=== PATIENT | male | born 1945 | race Caucasian/White ===

== ENCOUNTER 2016-07-19 18:49 | Outpatient (RCR) | payer BC, MEDICARE ==
[~2016-07-19] VITALS: Ht 175.3 cm; Wt 188.0 kg
[2016-07-19 08:34] VITALS: BP 128/72; PULSE 94; TEMP 97.1
[~2016-07-19 18:49] MED LIST: ALEVE 220MG220 MG PO; APRESOLINE50 MG PO; ASPIRIN E.C. 8181 MG PO; BENICAR; BENICAR HCT 12.1 TA1 PO; CARDIZEM LA360 MG PO; CATAPRES; CATAPRES0.2 MG PO; CEFACLOR500 M2 PO; CEPHALEXIN250 M1 PO; COUMADIN 22.5 MG/TAB PO; COUMADIN 5MG5 MG/TAB PO; DITROPAN XL15 MG PO; FLOMAX 0.40.4 MG/CAP PO; GAS-X80 MG PO; HYDROCORTISONE30 G1 TP; LASIX 40MG TABL40 MG PO; LIPITOR 10MG10 MG PO; LIPITOR 40MG TA40 MG PO; MAALOX1 TAB PO; MULTAQ400 MG PO; PERCOCET 325 MG1 TA2 PO; PERCOCET 5/321 UDTAB PO; PROPECIA1 MG PO; STOOL SOFTENER100 M2 PO; VESICARE10 MG PO; ZOFRAN 4MG T4 MG/TAB PO; bp meds
[2016-07-20 08:16] VITALS: BP 144/50; PULSE 107; TEMP 97.4
[2016-07-21 07:05] VITALS: BP 150/58; PULSE 88; TEMP 97.4
[2016-07-21 18:30] VITALS: BP 147/77; PULSE 84; TEMP 97.7
[2016-07-22 07:30] VITALS: BP 122/71; PULSE 77; TEMP 98
[2016-07-23] MEDS ORDERED: MAALOX ADVANCE148 ML PO (09:28)
[2016-07-23] MEDS ORDERED: PROAIR HFA0.09 MG/AC IH (09:29)
[2016-07-23] MEDS ORDERED: PROMETHAZINE V473 M2 PO (09:31)
[2016-07-23] MEDS ORDERED: TRIAMCINOLONE A15 G3 TP (09:32)
== END 2016-07-23 09:00 | disposition home or self-care (01) ==
LOC: EUO 18:49
DX: Z79.01 Long term (current) use of anticoagulants (principal); I35.0 Nonrheumatic aortic (valve) stenosis; I48.91 Unspecified atrial fibrillation
CPT/HCPCS: J1560; J1650

== ENCOUNTER 2016-07-23 07:16 | Day surgery (SDC) | payer BC, MEDICARE ==
[2016-07-23] VITALS (9 sets, daily range): BP systolic 96–149; BP diastolic 55–100; PULSE 58–93; TEMP 97.5–98.3
[~2016-07-23] VITALS: Ht 175.3 cm; Wt 185.7 kg
[2016-07-23 08:40] LABS: INR 1.2 (0.8-3.0); PROTHROMBIN TIME 13.6 SECONDS (9.7-12.8)
[2016-07-23] MEDS ORDERED: MAALOX ADVANCE148 ML PO (09:28)
[2016-07-23] MEDS ORDERED: PROAIR HFA0.09 MG/AC IH (09:29)
[2016-07-23] MEDS ORDERED: PROMETHAZINE V473 M2 PO (09:31)
[2016-07-23] MEDS ORDERED: TRIAMCINOLONE A15 G3 TP (09:32)
[2016-07-24 01:22] VITALS: BP 142/76; PULSE 83; TEMP 97.6
[2016-07-24 05:20] VITALS: BP 129/69; PULSE 90; TEMP 97.9
[2016-07-24 07:31] LABS: HEMATOCRIT 46.5 % (42.0-52.0); HEMOGLOBIN 14.7 g/dl (13.5-18.0); MEAN CELL VOLUME 91 fl (80.0-100.0); MEAN CORPUSCULAR HEMOGLOBIN 29 pg (27.0-31.0); MEAN CORPUSCULAR HGB CONC 32 g/dl (33.0-37.0); MEAN PLATELET VOLUME 10.3 fl (7.4-10.4); PLATELET COUNT 236 K/mm3 (130-400); REDCELL DISTRIBUTION WIDTH-CV 17.2 % (11.5-14.5); WHITE BLOOD COUNT 6.7 K/mm3 (4.8-10.8)
[2016-07-24 07:46] VITALS: BP 143/77; PULSE 82; TEMP 97.8
[2016-07-24 08:18] LABS: THYROID STIMULATING HORMONE 0.434 uIU/mL (0.465-4.680)
[2016-07-24 08:56] VITALS: BP 143/94; PULSE 93; TEMP 98.2
[2016-07-24 13:42] VITALS: BP 124/74; PULSE 82; TEMP 97.8
== END 2016-07-24 19:45 | disposition home or self-care (01) ==
LOC: SDCO 07:16 → SURG 14:15 → SDCO 07-24 19:45
PROVIDERS: Internal Medicine; Nurse Anesthetist, Certified Registered; Urology
DX: N40.1 Benign prostatic hyperplasia with lower urinary tract symptoms (principal); R35.0 Frequency of micturition; I97.89 Other postprocedural complications and disorders of the circulatory system, not elsewhere classified; Z79.01 Long term (current) use of anticoagulants; I10 Essential (primary) hypertension; E78.1 Pure hyperglyceridemia; E78.00 Pure hypercholesterolemia, unspecified; Z87.891 Personal history of nicotine dependence; Z80.3 Family history of malignant neoplasm of breast
CPT/HCPCS: OP; 99203; 99204; J0690; J1100; J1170; J1650; J2300; J2405; J2704; J3010; J7030

== ENCOUNTER 2016-07-26 18:35 | Outpatient (RCR) | payer BC, MEDICARE ==
[2016-07-25 07:29] VITALS: BP 126/66; PULSE 115; TEMP 98.2
[2016-07-25 18:18] VITALS: BP 128/63; PULSE 94; TEMP 97.8
[~2016-07-26] VITALS: Ht 175.3 cm; Wt 184.0 kg
[2016-07-26 08:31] VITALS: BP 116/67; PULSE 67; TEMP 98
[~2016-07-26 18:35] MED LIST changes: +MAALOX ADVANCE148 ML PO; +PROAIR HFA0.09 MG/AC IH; +PROMETHAZINE V473 M2 PO; +TRIAMCINOLONE A15 G3 TP
[2016-07-26 18:42] VITALS: BP 150/81; PULSE 96; TEMP 97.7
== END 2016-07-27 17:00 | disposition home or self-care (01) ==
LOC: EUO 07-27 08:00
DX: Z79.01 Long term (current) use of anticoagulants (principal)
CPT/HCPCS: J1560; J1650

== ENCOUNTER 2016-07-27 08:44 | Emergency (ER) | payer BC, MEDICARE ==
[~2016-07-27] VITALS: Ht 175.3 cm; Wt 181.8 kg
[2016-07-27 08:47] VITALS: BP 105/55; TEMP 98.2
[2016-07-27 09:42] LABS: ADJUSTED CALCIUM 9.5 mg/dL (8.4-10.2); ALBUMIN 3.6 gm/dL (3.5-5.0); BASO # 0.1 (0.0-0.2); BASO % 0.7 % (0.0-2.0); BILIRUBIN,TOTAL 1.7 mg/dL (0.0-1.0); CALCIUM 9.2 mg/dL (8.4-10.2); CREATININE, serum 0.74 mg/dL (0.66-1.25); EOS # 0.1 (0.0-0.7); EOS % 0.9 % (0-4.0); GRAN # 6.2 (1.4-6.5); GRAN % 71.4 % (42.2-75.2); HEMATOCRIT 41.8 % (42.0-52.0); HEMOGLOBIN 13.4 g/dl (13.5-18.0); LYMPH # 1.4 (1.2-3.4); LYMPH % 16.2 % (20.0-51.0); MEAN CELL VOLUME 88 fl (80.0-100.0); MEAN CORPUSCULAR HEMOGLOBIN 28 pg (27.0-31.0); MEAN CORPUSCULAR HGB CONC 32 g/dl (33.0-37.0); MEAN PLATELET VOLUME 10.3 fl (7.4-10.4); MONO # 0.9 (0.1-0.6); PLATELET COUNT 256 K/mm3 (130-400); POTASSIUM 3.9 mmol/L (3.4-5.0); RED BLOOD COUNT 4.73 M/mm3 (4.20-5.60); REDCELL DISTRIBUTION WIDTH-CV 16.6 % (11.5-14.5); TOTAL PROTEIN 6.4 gm/dL (6.4-8.2); WHITE BLOOD COUNT 8.7 K/mm3 (4.8-10.8)
[2016-07-27 09:48] LABS: INR 1.6 (0.8-3.0); PROTHROMBIN TIME 18.1 SECONDS (9.7-12.8)
[2016-07-27 11:00] VITALS: PULSE 79
== END 2016-07-27 11:01 | disposition home or self-care (01) ==
LOC: COL.ER 08:44
PROVIDERS: Family Medicine
DX: N99.820 Postprocedural hemorrhage of a genitourinary system organ or structure following a genitourinary system procedure (principal); I48.91 Unspecified atrial fibrillation; Z79.01 Long term (current) use of anticoagulants

== ENCOUNTER 2016-12-22 10:57 | Day surgery (SDC) | payer BC, MEDICARE ==
[~2016-12-22] VITALS: Ht 175.3 cm; Wt 155.9 kg
[2016-12-22] VITALS (11 sets, daily range): BP systolic 98–159; BP diastolic 55–94; PULSE 69–96; TEMP 98.7
[2016-12-22 11:38] LABS: HEMATOCRIT 46.7 % (42.0-52.0); HEMOGLOBIN 15.3 g/dl (13.5-18.0); MEAN CELL VOLUME 78 fl (80.0-100.0); MEAN CORPUSCULAR HEMOGLOBIN 25 pg (27.0-31.0); MEAN CORPUSCULAR HGB CONC 33 g/dl (33.0-37.0); PLATELET COUNT 275 K/mm3 (130-400); RED BLOOD COUNT 6.02 M/mm3 (4.20-5.60); REDCELL DISTRIBUTION WIDTH-CV 25.2 % (11.5-14.5); WHITE BLOOD COUNT 5.7 K/mm3 (4.8-10.8)
[2016-12-22 11:42] LABS: INR 1.7 (0.8-3.0); PROTHROMBIN TIME 19.8 SECONDS (9.7-12.8)
[2016-12-22 11:58] LABS: CALCIUM 9.5 mg/dL (8.4-10.2); CREATININE, serum 0.93 mg/dL (0.66-1.25); POTASSIUM 4.1 mmol/L (3.4-5.0)
[2016-12-22] MEDS ORDERED: MUCINEX 60600 MG/TA1 PO (11:59)
[2016-12-22] MEDS ORDERED: MELATONIN3 M1 PO (11:59)
[2016-12-22] MEDS ORDERED: ZANTAC 150MG T150 MG PO (12:00)
[2016-12-22] MEDS ORDERED: TOVIAZ4 MG PO (12:00)
[2016-12-22] MEDS ORDERED: DIOVAN HCT 25 M1 TAB PO (12:00)
[2016-12-22] MEDS ORDERED: VICTOZA6 MG/ML SQ (12:02)
== END 2016-12-22 19:01 | disposition home or self-care (01) ==
LOC: COL.CAR 10:57
PROVIDERS: Internal Medicine Cardiovascular Disease
DX: I27.2 Other secondary pulmonary hypertension (principal); I08.1 Rheumatic disorders of both mitral and tricuspid valves; I48.2 Chronic atrial fibrillation; E78.5 Hyperlipidemia, unspecified; E66.01 Morbid (severe) obesity due to excess calories; G90.01 Carotid sinus syncope; I26.09 Other pulmonary embolism with acute cor pulmonale; N40.0 Benign prostatic hyperplasia without lower urinary tract symptoms; Z79.01 Long term (current) use of anticoagulants; Z95.818 Presence of other cardiac implants and grafts; Z87.891 Personal history of nicotine dependence; Z81.8 Family history of other mental and behavioral disorders; Z82.49 Family history of ischemic heart disease and other diseases of the circulatory system
CPT/HCPCS: C1760; C1769; C1894; J1200; J2704; J2930; J3010; J7030; Q9967

== ENCOUNTER → 2017-02-03 | Outpatient (CLI) | payer BC ==
[~2017-02-03] VITALS: Ht 175.3 cm; Wt 150.5 kg
[~2017-02-03] MED LIST changes: +DIOVAN HCT 25 M1 TAB PO; +MAALOX ADVANCED1 CTB PO; +MELATONIN3 M1 PO; +MELATONIN5 M1 SL; +MUCINEX 60600 MG/TA1 PO; +SAXENDA6 MG/ML SQ; +TOVIAZ4 MG PO; +VICTOZA6 MG/ML SQ; +ZANTAC 150MG T150 MG PO
[2017-02-03 09:15] VITALS: BP 142/84; PULSE 98
[2017-02-03 10:25] VITALS: BP 142/84; PULSE 98
== END ==
LOC: COL.RAD 08:44
DX: D44.0 Neoplasm of uncertain behavior of thyroid gland (principal)
CPT/HCPCS: 13756

== ENCOUNTER 2017-03-23 11:54 | Day surgery (SDC) | payer BC, MEDICARE ==
[~2017-03-23] VITALS: Ht 175.3 cm; Wt 139.1 kg
[2017-03-23] MEDS ORDERED: LIPITOR 10MG10 MG PO (12:27)
[2017-03-23] MEDS ORDERED: DIOVAN HCT 12.51 TA2 PO (12:30)
[2017-03-23] MEDS ORDERED: TRIAMC 0.1 454 TOP (12:32)
[2017-03-23] MEDS ORDERED: ALEVE 220MG220 MG PO (12:33)
[2017-03-23] MEDS ORDERED: CENTRUM SILVER1 TAB PO (12:34)
[2017-03-23] MEDS ORDERED: DIET SQ (12:35)
[2017-03-23 12:36] VITALS: BP 134/77; PULSE 75; TEMP 97.2
[2017-03-23 16:30] VITALS: BP 99/69; PULSE 57; TEMP 97
[2017-03-23 16:41] VITALS: TEMP 97.2
[2017-03-23 16:45] VITALS: BP 117/73; PULSE 56
[2017-03-23] MEDS ORDERED: ZOFRAN 4MG T4 MG/TAB PO (16:55)
[2017-03-23] MEDS ORDERED: PERCOCET 325 MG1 TA2 PO (16:56)
[2017-03-23 17:00] VITALS: BP 112/76; PULSE 61
== END 2017-03-23 17:30 | disposition home or self-care (01) ==
LOC: SDCO 11:54
DX: C44.219 Basal cell carcinoma of skin of left ear and external auricular canal (principal); C44.311 Basal cell carcinoma of skin of nose; I48.91 Unspecified atrial fibrillation; I10 Essential (primary) hypertension; I25.10 Atherosclerotic heart disease of native coronary artery without angina pectoris; M19.90 Unspecified osteoarthritis, unspecified site; G47.33 Obstructive sleep apnea (adult) (pediatric); Z86.718 Personal history of other venous thrombosis and embolism; Z87.891 Personal history of nicotine dependence; Z79.01 Long term (current) use of anticoagulants; Z96.651 Presence of right artificial knee joint; Z82.49 Family history of ischemic heart disease and other diseases of the circulatory system
CPT/HCPCS: J0690; J1100; J2370; J2405; J3010; J7030; J7050; J7120

== ENCOUNTER 2017-07-18 12:29 | Inpatient (IN) | payer BC, MEDICARE ==
[~2017-07-18] VITALS: Ht 175.3 cm; Wt 126.4 kg
[~2017-07-18 12:29] MED LIST changes: +CENTRUM SILVER1 TAB PO; +DIET SQ; +DIOVAN HCT 12.51 TA2 PO; +TRIAMC 0.1 454 TOP
[2017-07-18] MEDS ORDERED: ZANTAC 150MG T150 MG PO (12:53)
[2017-07-18] MEDS ORDERED: CARDIZEM CD 24240 MG PO (12:53)
[2017-07-18] MEDS ORDERED: MELATONIN5 M1 SL (12:54)
[2017-07-18] MEDS ORDERED: TOVIAZ4 MG PO (12:54)
[2017-07-18] MEDS ORDERED: DIOVAN HCT 12.51 TA2 PO (12:54)
[2017-07-18] MEDS ORDERED: LASIX 20MG TABL20 MG PO (12:54)
[2017-07-18] MEDS ORDERED: COUMADIN 22.5 MG/TAB PO (12:55)
[2017-07-18] MEDS ORDERED: LIPITOR 10MG10 MG PO (12:55)
[2017-07-18] MEDS ORDERED: PROFERRIN ES12 MG PO (12:55)
[2017-07-18] MEDS ORDERED: MUCINEX DM 30 M1 TE1 (12:56)
[2017-07-18] MEDS ORDERED: CENTRUM MEN'S (12:56)
[2017-07-18] MEDS ORDERED: COUMADIN 5MG5 MG/TAB PO (12:56)
[2017-07-18] MEDS ORDERED: ALEVE 220MG220 MG PO (12:57)
[2017-07-18 13:14] LABS: BASO # 0.1 (0.0-0.2); BASO % 0.5 % (0.0-2.0); EOS # 0.1 (0.0-0.7); GRAN % 73.7 % (42.2-75.2); HEMATOCRIT 46.9 % (42.0-52.0); HEMOGLOBIN 15.9 g/dl (13.5-18.0); LYMPH # 1.5 (1.2-3.4); LYMPH % 15.5 % (20.0-51.0); MEAN CELL VOLUME 89 fl (80.0-100.0); MEAN CORPUSCULAR HEMOGLOBIN 30 pg (27.0-31.0); MEAN CORPUSCULAR HGB CONC 34 g/dl (33.0-37.0); MEAN PLATELET VOLUME 10.5 fl (7.4-10.4); MONO # 0.9 (0.1-0.6); PLATELET COUNT 272 K/mm3 (130-400); RED BLOOD COUNT 5.28 M/mm3 (4.20-5.60); REDCELL DISTRIBUTION WIDTH-CV 18.1 % (11.5-14.5)
[2017-07-18 13:28] LABS: ALANINE AMINOTRANSFERASE 31 U/L (21-72); ALBUMIN 3.9 gm/dL (3.5-5.0); ALKALINE PHOSPHATASE 84 U/L (50-136); ANION GAP 17 mmol/L (7-16); AST,SGOT 34 U/L (15-37); BILIRUBIN,TOTAL 1.3 mg/dL (0.0-1.0); BLOOD UREA NITROGEN 45 mg/dL (9-20); CALCIUM 9.7 mg/dL (8.4-10.2); CARBON DIOXIDE 25 mmol/L (22-30); CHLORIDE 97 mmol/L (98-107); CREATININE, serum 1.16 mg/dL (0.66-1.25); GLUCOSE 108 mg/dL (74-106); POTASSIUM 3.4 mmol/L (3.4-5.0); SODIUM 140 mmol/L (137-145); TOTAL PROTEIN 7.2 gm/dL (6.4-8.2)
[2017-07-18 13:34] LABS: C-REACTIVE PROTEIN < 0.5 mg/dL (0.0-0.9)
[2017-07-18 13:48] LABS: COLLECTION METHOD CLEAN CATCH
[2017-07-18 13:55] LABS: PH 5 (5-8); SQUAMOUS EPITHELIAL 0-2 /hpf; URINE APPEARANCE Clear; URINE BACTERIA None Seen /hpf; URINE BILIRUBIN Negative (NEGATIVE); URINE BLOOD Negative (NEGATIVE); URINE COLOR Yellow; URINE GLUCOSE Negative (NEGATIVE); URINE KETONE Trace (NEGATIVE); URINE LEUKOCYTE ESTERASE Negative (NEGATIVE); URINE NITRATE Negative (NEGATIVE); URINE PROTEIN(semi-quant) Negative (NEGATIVE); URINE RBC 0-2 /hpf; URINE UROBILINOGEN Negative (NEGATIVE)
[2017-07-18 15:40] LABS: INR 2.6 (0.8-3.0); PROTHROMBIN TIME 31.1 SECONDS (9.7-12.8)
[2017-07-18 15:43] LABS: PARTIAL THROMBOPLASTIN TIME 46.9 SECONDS (26.0-37.0)
[2017-07-18 19:32] VITALS: BP 120/58; PULSE 74; TEMP 97.7
[2017-07-18 20:00] VITALS: BP 117/59; PULSE 70; TEMP 98
[2017-07-19] VITALS (12 sets, daily range): BP systolic 91–121; BP diastolic 55–79; PULSE 42–91; TEMP 97.2–98.6
[2017-07-19 00:20] LABS: INR 1.9 (0.8-3.0); PROTHROMBIN TIME 22.4 SECONDS (9.7-12.8)
[2017-07-19 10:14] LABS: INR 1.5 (0.8-3.0); PROTHROMBIN TIME 17.6 SECONDS (9.7-12.8)
[2017-07-20 00:23] VITALS: BP 114/58; PULSE 62; TEMP 97.2
[2017-07-20 04:00] VITALS: BP 113/52; PULSE 67; TEMP 97.7
== END 2017-07-20 08:40 | disposition home or self-care (01) | DRG 354 ==
LOC: COL.ER 12:29 → SURG 16:14
PROVIDERS: Physician Assistant; Surgery
PROC: 0WUF0JZ Supplement Abdominal Wall with Synthetic Substitute, Open Approach (ICD-10-PCS; principal; 2017-07-19 13:00)
DX: K42.0 Umbilical hernia with obstruction, without gangrene (principal); Z68.41 Body mass index [BMI] 40.0-44.9, adult; I48.91 Unspecified atrial fibrillation; Z79.01 Long term (current) use of anticoagulants; Z87.891 Personal history of nicotine dependence; Z85.828 Personal history of other malignant neoplasm of skin; E66.01 Morbid (severe) obesity due to excess calories
CPT/HCPCS: C1781; J1100; J2270; J2405; J2704; J3010; J3430; J7030; J7120

== ENCOUNTER 2017-10-20 14:05 | Inpatient (IN) | payer BC, MEDICARE ==
[~2017-10-20] VITALS: Ht 175.3 cm; Wt 120.2 kg
[~2017-10-20 14:05] MED LIST changes: +CARDIZEM CD 24240 MG PO; +CENTRUM MEN'S; +LASIX 20MG TABL20 MG PO; +MUCINEX DM 30 M1 TE1 PO; +PROFERRIN ES12 MG PO
[2017-11-04] VITALS (10 sets, daily range): BP systolic 103–151; BP diastolic 52–85; PULSE 52–102; TEMP 97.8–98.2
[2017-11-04 09:48] LABS: INR 1.2 (0.8-3.0); PROTHROMBIN TIME 13.2 SECONDS (9.7-12.8)
[2017-11-04] MEDS ORDERED: FOLIC ACID 40400 MCG PO (09:48)
[2017-11-04] MEDS ORDERED: MAALOX ADVANCE148 ML PO (09:50)
[2017-11-05 01:07] VITALS: BP 128/74; PULSE 63; TEMP 97.6
[2017-11-05 04:39] VITALS: BP 112/60; PULSE 75; TEMP 97.4
[2017-11-05] MEDS ORDERED: CELEBREX 200MG200 MG PO (06:34)
[2017-11-05] MEDS ORDERED: NORCO 325 MG-7.1 TAB PO (06:34)
[2017-11-05] MEDS ORDERED: ULTRAM 50MG TAB50 MG PO (06:35)
[2017-11-05 07:29] LABS: HEMATOCRIT 44.2 % (42.0-52.0); HEMOGLOBIN 14.8 g/dl (13.5-18.0)
[2017-11-05 07:35] LABS: INR 1.2 (0.8-3.0); PROTHROMBIN TIME 13.6 SECONDS (9.7-12.8)
[2017-11-05 08:00] VITALS: BP 117/72; PULSE 78; TEMP 98.2
[2017-11-05 11:22] VITALS: BP 100/65; PULSE 61; TEMP 97.6
[2017-11-05 16:36] VITALS: BP 100/55; PULSE 70; TEMP 97.9
[2017-11-05 20:00] VITALS: BP 120/64; PULSE 41; TEMP 98.5
[2017-11-06 01:08] VITALS: BP 126/57; PULSE 69; TEMP 98.2
[2017-11-06 04:24] VITALS: BP 118/64; PULSE 88; TEMP 98.1
[2017-11-06 07:42] VITALS: BP 96/56; PULSE 59; TEMP 98
[2017-11-06 07:50] LABS: HEMATOCRIT 39.9 % (42.0-52.0); HEMOGLOBIN 13.3 g/dl (13.5-18.0); INR 1.5 (0.8-3.0); PROTHROMBIN TIME 17.5 SECONDS (9.7-12.8)
[2017-11-06 12:11] VITALS: BP 98/60; PULSE 62; TEMP 98.7
[2017-11-06 12:52] VITALS: BP 101/68
== END 2017-11-06 13:30 | disposition home or self-care (01) | DRG 470 ==
LOC: JCC 11-04 07:30
PROVIDERS: Nurse Anesthetist, Certified Registered; Orthopaedic Surgery
PROC: 0SRD0J9 Replacement of Left Knee Joint with Synthetic Substitute, Cemented, Open Approach (ICD-10-PCS; principal; 2017-11-04 10:45)
DX: M17.12 Unilateral primary osteoarthritis, left knee (principal)
CPT/HCPCS: A4314; A9284; C1713; C1776; J0690; J1650; J1885; J2250; J2270; J2370; J2704; J3010; J7120; J7121

== ENCOUNTER 2018-01-29 08:30 | Outpatient (CLI) | payer BC, MEDICARE ==
[~2018-01-29] VITALS: Ht 175.4 cm; Wt 115.0 kg
[~2018-01-29 08:30] MED LIST changes: +CELEBREX 200MG200 MG PO; -CENTRUM MEN'S; +CENTRUM MEN'S PO; +FOLIC ACID 40400 MCG PO; +MELATONIN5 M1 PO; +NORCO 325 MG-7.1 TAB PO; +ULTRAM 50MG TAB50 MG PO
[2018-01-29] MEDS ORDERED: COUMADIN 5MG5 MG/TAB PO (08:49)
[2018-01-29] MEDS ORDERED: ALEVE 220MG220 MG PO (08:54)
[2018-01-29] MEDS ORDERED: MIRALAX PA17 GM/Dose PO (08:56)
[2018-01-29] MEDS ORDERED: TRIAMCINOLONE AC0.13 TOP (08:59)
[2018-01-29 09:24] VITALS: BP 135/90; PULSE 60; TEMP 97.7
[2018-01-29 10:42] VITALS: BP 130/86; PULSE 86; TEMP 97.7
== END 2018-01-29 11:15 | disposition home or self-care (01) ==
LOC: COL.CAR 08:30
DX: I48.2 Chronic atrial fibrillation (principal); I73.9 Peripheral vascular disease, unspecified; I65.22 Occlusion and stenosis of left carotid artery; Z86.711 Personal history of pulmonary embolism; Z79.01 Long term (current) use of anticoagulants; I10 Essential (primary) hypertension; E78.5 Hyperlipidemia, unspecified; I08.0 Rheumatic disorders of both mitral and aortic valves; E66.01 Morbid (severe) obesity due to excess calories; G62.9 Polyneuropathy, unspecified; Z85.828 Personal history of other malignant neoplasm of skin; Z96.651 Presence of right artificial knee joint; Z88.3 Allergy status to other anti-infective agents; Z87.891 Personal history of nicotine dependence; Z80.9 Family history of malignant neoplasm, unspecified; Z82.49 Family history of ischemic heart disease and other diseases of the circulatory system
CPT/HCPCS: 27124; C1764

== ENCOUNTER 2018-02-15 06:08 | Inpatient (IN) | payer BC, MEDICARE ==
[2018-02-15] VITALS (8 sets, daily range): BP systolic 101–138; BP diastolic 56–90; PULSE 58–92; TEMP 97.5–97.8
[~2018-02-15] VITALS: Ht 175.4 cm; Wt 120.1 kg
[~2018-02-15 06:08] MED LIST changes: +MIRALAX PA17 GM/Dose PO; +TRIAMCINOLONE AC0.13 TOP
[2018-02-15 07:21] LABS: HEMATOCRIT 40.8 % (42.0-52.0); HEMOGLOBIN 13.7 g/dl (13.5-18.0); MEAN CELL VOLUME 92 fl (80.0-100.0); MEAN CORPUSCULAR HEMOGLOBIN 31 pg (27.0-31.0); MEAN CORPUSCULAR HGB CONC 34 g/dl (33.0-37.0); MEAN PLATELET VOLUME 9.6 fl (7.4-10.4); PLATELET COUNT 191 K/mm3 (130-400); RED BLOOD COUNT 4.43 M/mm3 (4.20-5.60); REDCELL DISTRIBUTION WIDTH-CV 16.3 % (11.5-14.5)
[2018-02-15 07:23] LABS: INR 1.8 (0.8-3.0)
[2018-02-15 07:28] LABS: CREATININE, serum 1.05 mg/dL (0.66-1.25); POTASSIUM 3.8 mmol/L (3.4-5.0)
[2018-02-15] MEDS ORDERED: MELATONIN5 M1 SL (07:51)
[2018-02-15] MEDS ORDERED: NORCO 325 MG-7.1 TAB PO (07:57)
[2018-02-15] MEDS ORDERED: ULTRAM 50MG TAB50 MG PO (07:57)
[2018-02-15] MEDS ORDERED: CEPHALEXIN500 M1 PO (08:07)
[2018-02-16] VITALS (7 sets, daily range): BP systolic 127–157; BP diastolic 74–85; PULSE 69–86; TEMP 97.4–98
[2018-02-16 07:23] LABS: BASO % 0.9 % (0.0-2.0); EOS # 0.2 (0.0-0.7); EOS % 3.7 % (0-4.0); GRAN # 2.7 (1.4-6.5); GRAN % 59.6 % (42.2-75.2); HEMATOCRIT 43.1 % (42.0-52.0); HEMOGLOBIN 14.6 g/dl (13.5-18.0); LYMPH % 22.4 % (20.0-51.0); MEAN CELL VOLUME 92 fl (80.0-100.0); MEAN CORPUSCULAR HEMOGLOBIN 31 pg (27.0-31.0); MEAN CORPUSCULAR HGB CONC 34 g/dl (33.0-37.0); MEAN PLATELET VOLUME 10.5 fl (7.4-10.4); MONO # 0.6 (0.1-0.6); PLATELET COUNT 186 K/mm3 (130-400); REDCELL DISTRIBUTION WIDTH-CV 15.9 % (11.5-14.5)
[2018-02-16 07:27] LABS: INR 1.6 (0.8-3.0); PROTHROMBIN TIME 17.9 SECONDS (9.7-12.8)
[2018-02-16 07:36] LABS: CALCIUM 9.3 mg/dL (8.4-10.2); CREATININE, serum 0.71 mg/dL (0.66-1.25); MAGNESIUM 1.9 mg/dL (1.6-2.3); POTASSIUM 3.9 mmol/L (3.4-5.0)
[2018-02-17 00:10] VITALS: BP 136/79; PULSE 70; TEMP 97.9
[2018-02-17 03:58] VITALS: BP 130/68; PULSE 70; TEMP 97.8
[2018-02-17 06:10] LABS: BASO # 0.1 (0.0-0.2); EOS # 0.1 (0.0-0.7); EOS % 2.2 % (0-4.0); GRAN # 3.4 (1.4-6.5); GRAN % 66.2 % (42.2-75.2); HEMATOCRIT 43.2 % (42.0-52.0); HEMOGLOBIN 14.5 g/dl (13.5-18.0); LYMPH # 0.9 (1.2-3.4); LYMPH % 17.2 % (20.0-51.0); MEAN CELL VOLUME 94 fl (80.0-100.0); MEAN CORPUSCULAR HEMOGLOBIN 32 pg (27.0-31.0); MEAN CORPUSCULAR HGB CONC 34 g/dl (33.0-37.0); MEAN PLATELET VOLUME 10.1 fl (7.4-10.4); MONO # 0.7 (0.1-0.6); PLATELET COUNT 203 K/mm3 (130-400)
[2018-02-17 06:19] LABS: CALCIUM 9.2 mg/dL (8.4-10.2); CREATININE, serum 0.7 mg/dL (0.66-1.25); MAGNESIUM 1.9 mg/dL (1.6-2.3); POTASSIUM 4.3 mmol/L (3.4-5.0)
[2018-02-17 06:37] LABS: INR 1.5 (0.8-3.0); PROTHROMBIN TIME 17.6 SECONDS (9.7-12.8)
[2018-02-17 07:30] VITALS: BP 136/76; PULSE 71; TEMP 98.6
[2018-02-17] MEDS ORDERED: BETAPACE 80MG80 MG PO (10:19)
[2018-02-17 10:45] VITALS: BP 108/69; PULSE 70; TEMP 98.2
[2018-02-17] MEDS ORDERED: CEPHALEXIN500 M1 PO (11:16)
== END 2018-02-17 11:32 | disposition home or self-care (01) | DRG 244 ==
LOC: COL.CAR 06:08 → MEDICAL 10:41 → COL.CAR 03-03 07:00
PROVIDERS: Internal Medicine Cardiovascular Disease; Nurse Practitioner
PROC: 0JH606Z Insertion of Pacemaker, Dual Chamber into Chest Subcutaneous Tissue and Fascia, Open Approach (ICD-10-PCS; principal; 2018-02-15)
PROC: 02H43JZ Insertion of Pacemaker Lead into Coronary Vein, Percutaneous Approach (ICD-10-PCS; 2018-02-15)
DX: I48.2 Chronic atrial fibrillation (principal); I10 Essential (primary) hypertension; E66.9 Obesity, unspecified; Z68.39 Body mass index [BMI] 39.0-39.9, adult; R00.1 Bradycardia, unspecified; Z96.652 Presence of left artificial knee joint; Z85.820 Personal history of malignant melanoma of skin; G47.33 Obstructive sleep apnea (adult) (pediatric)
CPT/HCPCS: C1769; C1785; C1894; C1898; J0690; J2250; J3010; J7030

== ENCOUNTER → 2018-06-28 | Outpatient (CLI) | payer BC, MEDICARE ==
[~2018-06-28] MED LIST changes: +BETAPACE 80MG80 MG PO; +CEPHALEXIN500 M1 PO
== END ==
LOC: COL.RAD 10:21
DX: M79.671 Pain in right foot (principal)
CPT/HCPCS: J3301; Q9967

== ENCOUNTER → 2018-11-30 | Outpatient (CLI) | payer BC | LOC: COL.RAD 11-29 12:30 | DX: M47.816 Spondylosis without myelopathy or radiculopathy, lumbar region (principal); M43.16 Spondylolisthesis, lumbar region ==

== ENCOUNTER 2019-10-20 13:22 | Outpatient (RCR) | payer BC, MEDICARE ==
[~2019-10-20 13:22] MED LIST changes: +PEPCID 20MG TAB20 MG PO; +REQUIP 0.5MG0.5 MG PO; +TIAZAC180 MG PO
== END 2020-01-18 | disposition home or self-care (01) ==
LOC: WSST
DX: T17.908D Unspecified foreign body in respiratory tract, part unspecified causing other injury, subsequent encounter (principal)

== ENCOUNTER 2019-12-26 15:40 | Outpatient (RCR) | payer BC, MEDICARE | END 2019-12-28 06:28 | disposition home or self-care (01) | LOC: COL.CR 15:40 | DX: Z48.812 Encounter for surgical aftercare following surgery on the circulatory system (principal); Z95.2 Presence of prosthetic heart valve ==

== ENCOUNTER 2020-08-31 08:42 | Day surgery (SDC) | payer BC, MEDICARE ==
[~2020-08-31] VITALS: Ht 170.2 cm; Wt 149.1 kg
[2020-08-31 09:07] VITALS: BP 141/88; PULSE 67; TEMP 98.1
[2020-08-31] MEDS ORDERED: COUMADIN 2MG2 MG/TAB PO (09:21)
[2020-08-31 10:25] VITALS: BP 109/67; PULSE 75
--- NOTE | 2020-08-31 10:25 | NUR ---
[place] [facility] [place] denies pain or nausea. Patient amublates from cart to chair with standby assist and without any complications. Patient monitor applied, vitals stable. Patient's spouse at chairside.
[2020-08-31 10:45] VITALS: BP 125/78; PULSE 70
--- NOTE | 2020-08-31 10:50 | NUR ---
Dr Felder into see patient at this time to go over procedure results.
[2020-08-31 11:00] VITALS: BP 131/79; PULSE 72
--- NOTE | 2020-08-31 11:00 | NUR ---
Patient tolerated food and drink without any nause or vomiting. Patient reports he feels great and is ready to go home. Vitals stable.
--- NOTE | 2020-08-31 11:20 | NUR ---
Dismissal instructions gone over with patient and patient's spouse. Both verbalize understanding and all questions answered.
--- NOTE | 2020-08-31 11:30 | NUR ---
Patient discharged to private vehicle at patient enterance via wheel walker without any complications. Patient and family leave thanking staff for services.
== END 2020-08-31 11:30 | disposition home or self-care (01) ==
LOC: SDCO 08:42
DX: K22.2 Esophageal obstruction (principal); K21.9 Gastro-esophageal reflux disease without esophagitis; K22.8 Other specified diseases of esophagus; I48.91 Unspecified atrial fibrillation; I65.22 Occlusion and stenosis of left carotid artery; E78.5 Hyperlipidemia, unspecified; E66.01 Morbid (severe) obesity due to excess calories; G62.9 Polyneuropathy, unspecified; I34.0 Nonrheumatic mitral (valve) insufficiency; I10 Essential (primary) hypertension; I26.99 Other pulmonary embolism without acute cor pulmonale; I25.10 Atherosclerotic heart disease of native coronary artery without angina pectoris; G25.81 Restless legs syndrome; G47.33 Obstructive sleep apnea (adult) (pediatric); I82.409 Acute embolism and thrombosis of unspecified deep veins of unspecified lower extremity; Z85.828 Personal history of other malignant neoplasm of skin; Z79.01 Long term (current) use of anticoagulants; Z95.0 Presence of cardiac pacemaker; Z95.2 Presence of prosthetic heart valve; Z99.89 Dependence on other enabling machines and devices; Z96.651 Presence of right artificial knee joint; Z79.82 Long term (current) use of aspirin; Z79.899 Other long term (current) drug therapy; Z87.891 Personal history of nicotine dependence; Z68.42 Body mass index [BMI] 45.0-49.9, adult
CPT/HCPCS: C1726; J2704; J7030

== ENCOUNTER → 2020-09-17 | Outpatient (CLI) | payer BC, MEDICARE ==
[~2020-09-17] MED LIST changes: +ANTIVERT 25MG25 MG PO; +CARAFATE 1GM1 G PO; +COUMADIN 2MG2 MG/TAB PO; +FLONASE NASAL S16 GM NS; +LOVENOX150 MG/ML INJ; +PROTONIX 40MG T40 MG PO; +TIAZAC120 MG PO; +TRIAMCINOLONE A15 GM TP; +ZYRTEC5 MG PO
== END ==
LOC: COL.RAD 08:55
DX: M25.562 Pain in left knee (principal)
CPT/HCPCS: A9503

== ENCOUNTER 2020-09-26 09:29 | Inpatient (IN) | payer BC, MEDICARE ==
[~2020-09-26] VITALS: Ht 172.7 cm; Wt 135.5 kg
[~2020-09-26 09:29] MED LIST changes: -ANTIVERT 25MG25 MG PO; -CARAFATE 1GM1 G PO; -FLONASE NASAL S16 GM NS; -LOVENOX150 MG/ML INJ; -PROTONIX 40MG T40 MG PO; -TIAZAC120 MG PO; -TRIAMCINOLONE A15 GM TP; -ZYRTEC5 MG PO
[2020-10-29] VITALS (10 sets, daily range): BP systolic 97–125; BP diastolic 52–72; PULSE 66–76; TEMP 97.2–97.8
[2020-10-29 07:35] LABS: INR 1.2 (0.8-3.0); PROTHROMBIN TIME 13.2 SECONDS (9.7-12.8)
[2020-10-29 07:38] LABS: CALCIUM 10.3 mg/dL (8.4-10.2); CREATININE, serum 1.23 (0.66-1.25); POTASSIUM 4.9 mmol/L (3.4-5.0)
[2020-10-29] MEDS ORDERED: TIAZAC120 MG PO ×2 (07:41→11:22)
[2020-10-29] MEDS ORDERED: ALEVE 220MG220 MG PO (07:45)
[2020-10-29] MEDS ORDERED: MELATONIN5 M1 SL (07:49)
[2020-10-29] MEDS ORDERED: PEPCID 20MG TAB20 MG PO (07:50)
[2020-10-29] MEDS ORDERED: ASPIRIN E.C. 8181 MG PO (07:50)
[2020-10-29] MEDS ORDERED: FLONASE NASAL S16 GM NS (07:51)
[2020-10-29] MEDS ORDERED: MUCINEX 60600 MG/TA1 PO (07:52)
[2020-10-29] MEDS ORDERED: ANTIVERT 25MG25 MG PO (07:53)
[2020-10-29] MEDS ORDERED: PROTONIX 40MG T40 MG PO (07:59)
[2020-10-29] MEDS ORDERED: CARAFATE 1GM1 G PO (08:00)
[2020-10-29] MEDS ORDERED: TRIAMCINOLONE A15 GM TP (08:24)
[2020-10-29] MEDS ORDERED: LOVENOX150 MG/ML INJ (08:26)
[2020-10-29] MEDS ORDERED: ZYRTEC5 MG PO (11:10)
--- NOTE | 2020-10-29 11:37 | NUR ---
Pt tolerating water and cranberry juice without issues. Would like to eat regular food. Order placed. No pain at this time. Has feeling and movement to RLE, movement but decreased sensation to L knee. Immobilizer and ice in place to L knee. Call light within reach.
--- NOTE | 2020-10-29 18:52 | NUR ---
Pt continued to have intermittent pain, PRN pain medications administered. Good appetite and fluid intake. Robert DD. Knee immobilizer in place, LLE on pillow with ice in place. No needs at this time. Call light within reach.
--- NOTE | 2020-10-29 20:00 | NUR ---
Report received, assumed care for grounds worker. Assessment complete. A&Ox3-drowsy. Denies pain/nausea/shortness of breath. VS stable. SCD/Yamil to RLE. Immobilizer in place to left. Dressing CDI-bulky white/magi. Fresh ice pack applied. Jones cath with clear yellow urine. Plan of care discussed for this shift to include HS meds/pain control/activity/calling for questions/concerns. Verbalizes understanding/denies needs. Call light in reach. Will monitor.
[2020-10-30] VITALS (7 sets, daily range): BP systolic 80–117; BP diastolic 40–56; PULSE 68–73; TEMP 97.7–99.3
--- NOTE | 2020-10-30 00:30 | NUR ---
Called with c/o pain to left knee-rating pain 7/10 on pain scale-described as constant throbbing. Hydrocodone two tabs given per dr order. Fresh ice pack applied. Will monitor.
[2020-10-30] MEDS ORDERED: NORCO 325 MG-7.1 TAB PO (06:30)
[2020-10-30] MEDS ORDERED: ULTRAM 50MG TAB50 MG PO (06:30)
[2020-10-30 07:21] LABS: HEMOGLOBIN 10.6 g/dl (13.5-18.0)
[2020-10-30 07:25] LABS: HEMATOCRIT 34.8 % (42.0-52.0)
[2020-10-30 07:34] LABS: INR 1.3 (0.8-3.0); PROTHROMBIN TIME 14.9 SECONDS (9.7-12.8)
--- NOTE | 2020-10-30 08:55 | NUR ---
Patient is resting in bed, alert and oriented x4, VSS, no nausea or vomiting, pain under control. Doctor came at 6 am and changed the dressing to aquacell. Incition is clean, some drainage notice in it. Morning meds provided. Patient is having breakfast. Jones is going to be discontinue. No further needs at this time. Call light within reach.
--- NOTE | 2020-10-30 10:00 | NUR ---
Therapy has been in and worked with pt. Pt did well once he was standing, but he did require the bed to be lifted in order for him to stand. Pt reported using a lift chair at home and stated that he would not be able to get up from our reclinders. After PT worked with pt, pt went back to bed.
--- NOTE | 2020-10-30 10:30 | NUR ---
Pt resting in bed with complaints of his catheter bothering him. Catheter removed at this time per orders. Pt at the bedside. Assisted pt to stand to apply briefs. Pt reports that he does have incontinence when he stands up. Pt required having the bed raised in order to stand. Once pt was standing, he did well with minimal pain complaints. Assisted pt back in to bed, new ice pack applied
--- NOTE | 2020-10-30 13:17 | NUR ---
Patient complains of pain 6 out of 10. PRN provided.
--- NOTE | 2020-10-30 13:47 | NUR ---
Tani met with the pt who stated his preference to post acute rehab. The pt lives at home with his , Bita (ph# [phone]). The pt is independent on ALDS, but does use a 4WW. The pt PCP Dr. Chavez and gets his medications from [facility]. The pt states he has a DPAO-HC. PT recommends post acute rehab and the pt informed Sw that he would like to go to [facility]. Tani faxed over medical documents [facility]. No other needs stated at this time. Sw to await and follow up as needed.. D/C: pending placment
--- NOTE | 2020-10-30 15:10 | NUR ---
Tani recieved phone call from Sandy from [facility]. She informed Sw that everything looks well, just needs attentive D/c date due to beds. Tani informed her she would call her back after finding out when he will be will be discharging.
--- NOTE | 2020-10-30 18:31 | NUR ---
Patient is resting in bed. He has being feeling pain in his left calf. Patient has history of cellulitis and is concern about having it again. Pain medication provided PRN. No redness or exessive warm was present. Patient was able to flex and extend his foot with no to much pain. Right now is resting in bed with family member in room. No further needs at this time. Report will be given to night nurse.
[2020-10-31] VITALS (7 sets, daily range): BP systolic 86–104; BP diastolic 48–56; PULSE 69–73; TEMP 98.1–99.3
--- NOTE | 2020-10-31 02:44 | NUR ---
Assessment completed/ alert and oriented. Patient is lying in bed complains of pain in his left calf. He has knee immobilizer in placed on left knee. He said he has hx of cellulitis and very anxious that he might have it again. Knee was elevated in pillows. He able to move it with little assistance. He asked pain meds after he had his night dose of meds. But when RN came back for pain meds he is sleeping. Bed alarm is on and call light within reach. Continue to monitor.
--- NOTE | 2020-10-31 04:39 | NUR ---
Patient got [facility] this morning for left calf pain. No further complains noted.
[2020-10-31 07:00] LABS: HEMATOCRIT 29.8 % (42.0-52.0); HEMOGLOBIN 9.2 g/dl (13.5-18.0)
[2020-10-31 07:20] LABS: INR 1.5 (0.8-3.0); PROTHROMBIN TIME 17.1 SECONDS (9.7-12.8)
--- NOTE | 2020-10-31 12:23 | NUR ---
CONSULT CALLED FOR PICC LINE PLACEMENT AND ID IV ABX MANAGEMENT THIS AM @0800.
--- NOTE | 2020-10-31 13:57 | NUR ---
Tani faxed updates to Sandy at [facility].
--- NOTE | 2020-11-01 00:13 | NUR ---
Up out of bed at this time. Took a few steps but khalif stood at side of bed. C/O pain to right ankle/hip. States the operative extremity doesnt have pain-its the opposite side. [place] given per order. Assisted back to bed. Call light in reach. WIll monitor.
[2020-11-01 04:16] VITALS: BP 90/54; PULSE 70; TEMP 98.3
--- NOTE | 2020-11-01 04:30 | NUR ---
Rested off and on this shift. Received PO pain meds with good results. States pain isnt in the operative extremity-c/o pain to right hip and ankle. Did get up out of bed last night but unable to go far-took a few steps-mostly stood at side of bed. Denies current needs. Call light in reach. Will monitor.
[2020-11-01 07:06] LABS: MEAN CELL VOLUME 82 fl (80.0-100.0); MEAN CORPUSCULAR HGB CONC 31 g/dl (33.0-37.0); MEAN PLATELET VOLUME 9.8 fl (7.4-10.4); PLATELET COUNT 249 K/mm3 (130-400); RED BLOOD COUNT 3.69 M/mm3 (4.20-5.60); REDCELL DISTRIBUTION WIDTH-CV 22.1 % (11.5-14.5)
[2020-11-01 07:09] LABS: HEMATOCRIT 30.4 % (42.0-52.0); HEMOGLOBIN 9.4 g/dl (13.5-18.0); MEAN CORPUSCULAR HEMOGLOBIN 25 pg (27.0-31.0)
[2020-11-01 07:18] VITALS: BP 102/56; PULSE 72; TEMP 98
[2020-11-01 07:37] LABS: ERYTHROCYTE SEDIMENTATION RATE 92 mm/hr (0-30)
[2020-11-01 07:40] LABS: EOSINOPHIL 1 % (0-4); LYMPHOCYTE 4 % (20.0-51.0); NEUTROPHILS 88 % (42.0-75.2)
[2020-11-01 07:47] LABS: ANISOCYTOSIS 2+; HYPOCHROMIA 2+
--- NOTE | 2020-11-01 10:59 | NUR ---
PICC LINE PLACED, COVID SWAB COMPLETE. NYSTATIN CREAM APPLIED TO RIGHT SIDE OF PANUS. PT TOLERATED ALL PROCEEDURES WELL. [facility].
--- NOTE | 2020-11-01 11:36 | NUR ---
Tani faxed over D/c order and Covid test results to Sandy at [facility]. D/c will be at 1pm.
[2020-11-01 12:23] VITALS: BP 99/58; PULSE 69; TEMP 98.8
--- NOTE | 2020-11-01 13:43 | NUR ---
REPORT CALLED TO KATHY DOWNS PT TRANSFERED BY TRANSPORTATION FOR KATHY.
== END 2020-11-01 13:00 | DRG 468 ==
LOC: SURG 10-29 05:28 → INPTSU 10-29 05:28 → SURG 10-29 07:30
PROVIDERS: Internal Medicine Infectious Disease; Nurse Anesthetist, Certified Registered; Physician Assistant; ADMIT Orthopaedic Surgery
PROC: 0SRT0J9 Replacement of Right Knee Joint, Femoral Surface with Synthetic Substitute, Cemented, Open Approach (ICD-10-PCS; 2020-10-29)
PROC: 0SPT0JZ Removal of Synthetic Substitute from Right Knee Joint, Femoral Surface, Open Approach (ICD-10-PCS; principal; 2020-10-29 07:30)
DX: T84.032A Mechanical loosening of internal right knee prosthetic joint, initial encounter (principal); Y84.8 Other medical procedures as the cause of abnormal reaction of the patient, or of later complication, without mention of misadventure at the time of the procedure; I48.91 Unspecified atrial fibrillation; I35.0 Nonrheumatic aortic (valve) stenosis; I10 Essential (primary) hypertension; I73.9 Peripheral vascular disease, unspecified; G47.30 Sleep apnea, unspecified; Z86.711 Personal history of pulmonary embolism; I34.0 Nonrheumatic mitral (valve) insufficiency
CPT/HCPCS: A4314; A9284; C1713; C1751; C1776; J0690; J0692; J2250; J2270; J2370; J2704; J7030; J7050; L1830

== ENCOUNTER 2020-10-27 12:45 | Emergency (ER) | payer BC, MEDICARE ==
[~2020-10-27] VITALS: Ht 172.7 cm; Wt 135.5 kg
[2020-10-27 12:56] VITALS: TEMP 98.2
[2020-10-27 13:29] LABS: BASO # 0.1 (0.0-0.2); BASO % 0.7 % (0.0-2.0); EOS # 0.1 (0.0-0.7); EOS % 1.6 % (0-4.0); GRAN # 4.6 (1.4-6.5); GRAN % 65.5 % (42.2-75.2); HEMATOCRIT 39.7 % (42.0-52.0); HEMOGLOBIN 12.4 g/dl (13.5-18.0); LYMPH # 1.2 (1.2-3.4); LYMPH % 17.9 % (20.0-51.0); MEAN CELL VOLUME 80 fl (80.0-100.0); MEAN CORPUSCULAR HEMOGLOBIN 25 pg (27.0-31.0); MEAN CORPUSCULAR HGB CONC 31 g/dl (33.0-37.0); MEAN PLATELET VOLUME 9.3 fl (7.4-10.4); MONO # 0.9 (0.1-0.6); MONO % 13.4 % (1.7-9.3); PLATELET COUNT 382 K/mm3 (130-400); RED BLOOD COUNT 4.95 M/mm3 (4.20-5.60); REDCELL DISTRIBUTION WIDTH-CV 22.5 % (11.5-14.5)
[2020-10-27 13:36] LABS: INR 1.3 (0.8-3.0); PROTHROMBIN TIME 14.8 SECONDS (9.7-12.8)
[2020-10-27 13:37] LABS: ALANINE AMINOTRANSFERASE 23 U/L (4-49); ALBUMIN 3.7 gm/dL (3.5-5.0); ALKALINE PHOSPHATASE 127 U/L (50-136); ANION GAP 9 mmol/L (7-16); AST,SGOT 34 U/L (15-37); BILIRUBIN,TOTAL 0.6 mg/dL (0.0-1.0); BLOOD UREA NITROGEN 38 mg/dL (9-20); CALCIUM 10.1 mg/dL (8.4-10.2); CARBON DIOXIDE 23 mmol/L (22-30); CHLORIDE 105 mmol/L (98-107); CREATININE, serum 1.12 (0.66-1.25); GLUCOSE 112 mg/dL (74-106); POTASSIUM 4.3 mmol/L (3.4-5.0); SODIUM 137 mmol/L (137-145); TOTAL PROTEIN 7.7 gm/dL (6.4-8.2)
[2020-10-27 13:38] LABS: PARTIAL THROMBOPLASTIN TIME 41.8 SECONDS (26.0-37.0)
[2020-10-27 13:49] LABS: TROPONIN-I < 0.012 ng/mL (0.000-0.035)
[2020-10-27 15:57] VITALS: BP 116/71; PULSE 70
== END 2020-10-27 16:10 | disposition home or self-care (01) ==
LOC: COL.ER 12:45
PROVIDERS: Family Medicine
DX: R07.89 Other chest pain (principal); I10 Essential (primary) hypertension; I48.91 Unspecified atrial fibrillation; Z95.9 Presence of cardiac and vascular implant and graft, unspecified; Z79.01 Long term (current) use of anticoagulants; Z79.899 Other long term (current) drug therapy

== ENCOUNTER → 2020-11-06 | Outpatient (REF) ==
[~2020-11-06] MED LIST changes: +ANTIVERT 25MG25 MG PO; +CARAFATE 1GM1 G PO; +FLONASE NASAL S16 GM NS; +LOVENOX150 MG/ML INJ; +PROTONIX 40MG T40 MG PO; +TIAZAC120 MG PO; +TRIAMCINOLONE A15 GM TP; +ZYRTEC5 MG PO
[2020-11-06 10:09] LABS: MEAN CELL VOLUME 82 fl (80.0-100.0); MEAN CORPUSCULAR HGB CONC 31 g/dl (33.0-37.0); MEAN PLATELET VOLUME 9.8 fl (7.4-10.4); PLATELET COUNT 416 K/mm3 (130-400); RED BLOOD COUNT 3.85 M/mm3 (4.20-5.60); REDCELL DISTRIBUTION WIDTH-CV 21.8 % (11.5-14.5)
[2020-11-06 10:13] LABS: HEMATOCRIT 31.6 % (42.0-52.0); HEMOGLOBIN 9.7 g/dl (13.5-18.0); MEAN CORPUSCULAR HEMOGLOBIN 25 pg (27.0-31.0)
[2020-11-06 10:25] LABS: ANISOCYTOSIS 4+; EOSINOPHIL 3 % (0-4); HYPOCHROMIA 3+; LYMPHOCYTE 4 % (20.0-51.0); NEUTROPHILS 80 % (42.0-75.2); PLATELET ESTIMATE INCREASED (NORMAL)
[2020-11-06 10:30] LABS: ALBUMIN 2.7 gm/dL (3.5-5.0); BILIRUBIN,TOTAL 1.2 mg/dL (0.0-1.0); CALCIUM 8.5 mg/dL (8.4-10.2); CREATININE, serum 0.73 (0.66-1.25); ERYTHROCYTE SEDIMENTATION RATE 83 mm/hr (0-30); POTASSIUM 4.3 mmol/L (3.4-5.0); TOTAL PROTEIN 5.8 gm/dL (6.4-8.2)
[2020-11-06 10:41] LABS: C-REACTIVE PROTEIN 17.9 mg/dL (0.0-0.9)
== END ==
LOC: ZCOL.LAB 10:04
PROVIDERS: Nurse Practitioner
DX: T84.54XA Infection and inflammatory reaction due to internal left knee prosthesis, initial encounter (principal)

== ENCOUNTER → 2020-11-20 | Outpatient (CLI) | payer BC, MEDICARE ==
[2020-11-20 16:51] LABS: BASO # 0.1 (0.0-0.2); BASO % 0.8 % (0.0-2.0); EOS # 0.2 (0.0-0.7); EOS % 2.8 % (0-4.0); GRAN # 4.3 (1.4-6.5); GRAN % 67.8 % (42.2-75.2); LYMPH # 0.9 (1.2-3.4); LYMPH % 13.4 % (20.0-51.0); MEAN CELL VOLUME 85 fl (80.0-100.0); MEAN CORPUSCULAR HEMOGLOBIN 25 pg (27.0-31.0); MEAN CORPUSCULAR HGB CONC 29 g/dl (33.0-37.0); MEAN PLATELET VOLUME 10.3 fl (7.4-10.4); MONO # 0.9 (0.1-0.6); MONO % 14.4 % (1.7-9.3); PLATELET COUNT 403 K/mm3 (130-400); REDCELL DISTRIBUTION WIDTH-CV 21.7 % (11.5-14.5)
[2020-11-20 17:02] LABS: ALBUMIN 2.8 gm/dL (3.5-5.0); BILIRUBIN,TOTAL 0.9 mg/dL (0.0-1.0); C-REACTIVE PROTEIN 5.7 mg/dL (0.0-0.9); CALCIUM 8.8 mg/dL (8.4-10.2); CREATININE, serum 0.91 (0.66-1.25); POTASSIUM 3.9 mmol/L (3.4-5.0); TOTAL PROTEIN 5.9 gm/dL (6.4-8.2)
[2020-11-20 17:23] LABS: ERYTHROCYTE SEDIMENTATION RATE 31 mm/hr (0-30)
== END ==
LOC: ZCOL.LAB 12:42
PROVIDERS: Nurse Practitioner
DX: T84.54XA Infection and inflammatory reaction due to internal left knee prosthesis, initial encounter (principal)

== ENCOUNTER 2020-12-27 11:57 | Outpatient (CLI) | payer BC, MEDICARE ==
[~2020-12-27] VITALS: Ht 172.7 cm; Wt 144.6 kg
[2020-12-27 12:25] VITALS: BP 105/69; PULSE 72; TEMP 98.4
== END 2020-12-27 14:18 ==
LOC: EUO 11:57
DX: T84.54XD Infection and inflammatory reaction due to internal left knee prosthesis, subsequent encounter (principal)

== ENCOUNTER → 2021-01-17 | Outpatient (CLI) | payer BC, MEDICARE ==
[2021-01-17 10:49] LABS: BASO # 0.1 K/mm3 (0.0-0.2); BASO % 0.9 % (0.0-2.0); EOS # 0.2 K/mm3 (0.0-0.7); EOS % 2.2 % (0-4.0); GRAN # 6.2 K/mm3 (1.4-6.5); GRAN % 76.5 % (42.2-75.2); HEMATOCRIT 37.4 % (42.0-52.0); HEMOGLOBIN 11.4 g/dl (13.5-18.0); LYMPH # 0.8 K/mm3 (1.2-3.4); LYMPH % 10.2 % (20.0-51.0); MEAN CELL VOLUME 83 fl (80.0-100.0); MEAN CORPUSCULAR HEMOGLOBIN 25 pg (27.0-31.0); MEAN CORPUSCULAR HGB CONC 31 g/dl (33.0-37.0); MEAN PLATELET VOLUME 9.5 fl (7.4-10.4); MONO # 0.8 K/mm3 (0.1-0.6); MONO % 9.8 % (1.7-9.3); PLATELET COUNT 437 K/mm3 (130-400); RED BLOOD COUNT 4.52 M/mm3 (4.20-5.60)
[2021-01-17 11:04] LABS: ALBUMIN 3.3 gm/dL (3.4-4.8); BILIRUBIN,TOTAL 1.3 mg/dL (0.2-1.2); C-REACTIVE PROTEIN 5.5 mg/dL (0.00-0.50); CREATININE, serum 1.09 mg/dL (0.72-1.25); POTASSIUM 4.2 mmol/L (3.5-4.5)
[2021-01-17 11:08] LABS: ERYTHROCYTE SEDIMENTATION RATE 46 mm/hr (0-30)
== END ==
LOC: COL.RAD 10:00
DX: I51.7 Cardiomegaly (principal); B99.9 Unspecified infectious disease

== ENCOUNTER 2021-06-08 20:26 | Emergency (ER) | payer BC, MEDICARE ==
[~2021-06-08] VITALS: Ht 172.7 cm; Wt 150.0 kg
[2021-06-08 20:39] VITALS: TEMP 97.8
[2021-06-08 23:49] VITALS: BP 126/71; PULSE 70
== END 2021-06-09 00:11 | disposition home or self-care (01) ==
LOC: COL.ER 20:26
DX: T82.898A Other specified complication of vascular prosthetic devices, implants and grafts, initial encounter (principal)
CPT/HCPCS: J0692

== ENCOUNTER → 2021-09-17 | Outpatient (CLI) | payer BC, MEDICARE | LOC: ZCOL.LAB 22:26 | DX: M86.162 Other acute osteomyelitis, left tibia and fibula (principal) ==